=== PATIENT | female | born 1980 ===

== ENCOUNTER 2018-02-20 20:47 | Emergency (ER) | payer BC ==
[~2018-02-20] VITALS: Ht 167.6 cm; Wt 88.5 kg
[~2018-02-20 20:47] MED LIST: ATARAX25 MG PO; BENADRYL25 MG PO; CETAPHIL226 GM TP; LOTRISONE CREAM45 GM TP; TYLENOL-CODEINE1 TAB PO
[2018-02-20] MEDS ORDERED: ALEVE220 M1 (21:27)
[2018-02-21] MEDS ORDERED: NORFLEX100MG PO (00:58)
[2018-02-21] MEDS ORDERED: NAPROXEN SODIU550 M1 PO (00:58)
== END 2018-02-21 01:15 ==
LOC: ER 20:47
DX: S30.0XXA Contusion of lower back and pelvis, initial encounter (principal); S50.01XA Contusion of right elbow, initial encounter; S90.31XA Contusion of right foot, initial encounter; S10.83XA Contusion of other specified part of neck, initial encounter; S40.011A Contusion of right shoulder, initial encounter; W10.8XXA Fall (on) (from) other stairs and steps, initial encounter; Y93.89 Activity, other specified; Y92.098 Other place in other non-institutional residence as the place of occurrence of the external cause; Y99.8 Other external cause status